=== PATIENT | female | born 2005 | race Caucasian/White ===

== ENCOUNTER → 2023-03-06 | Outpatient (CLI) | payer OTHER ==
[2023-03-06 13:29] LABS: FREE T3 3.2 PG/ML (3.0-4.7); FREE T4 1.1 NG/DL (0.83-1.43); THYROID STIMULATING HORMONE 0.855 uIU/ML (0.48-4.17)
[2023-03-07 13:08] LABS: SSA SJOGRENS A <0.2 AI (0.0-0.9); SSB SJOGRENS B 0.2 AI (0.0-0.9)
== END ==
LOC: M LAB 12:35
PROVIDERS: ATTEND Ophthalmology
DX: H16.229 Keratoconjunctivitis sicca, not specified as Sjogren's, unspecified eye (principal)

== ENCOUNTER → 2023-03-23 | Outpatient (REF) | LOC: M EMP 09:57 | PROVIDERS: ATTEND Family Medicine | DX: Z11.52 Encounter for screening for COVID-19 (principal) ==

== ENCOUNTER → 2023-08-30 | Outpatient (CLI) | payer MEDICAID, OTHER ==
[2023-08-30 15:16] LABS: BASO % 0.4 % (0.0-1.0); EOS # 0.1 10^3/uL (0.0-0.5); EOS % 1.1 % (0.0-3.0); HEMOGLOBIN 12.9 g/dl (12.0-15.5); LYMPH # 1.7 10^3/uL (1.5-5.0); LYMPH % 22.6 % (24.0-44.0); MEAN CORPUSCULAR HEMOGLOBIN 30.4 pg (27.0-33.0); MEAN CORPUSCULAR HGB CONC 33.1 g/dl (32.0-36.5); MEAN CORPUSCULAR VOLUME 91.8 fl (80.0-96.0); MONO # 0.5 10^3/uL (0.0-0.8); MONO % 7.2 % (2.0-8.0); NEUTROPHILS # 5.1 10^3/uL (1.5-8.5); NEUTROPHILS % 68.6 % (36.0-66.0); PLATELET COUNT, AUTOMATED 195 10^3/uL (150-450); RED BLOOD COUNT 4.25 10^6/uL (4.00-5.40); WHITE BLOOD COUNT 7.5 10^3/uL (4.0-10.0)
[2023-08-30 15:45] LABS: ALBUMIN 3.9 G/DL (3.2-5.2); ALKALINE PHOSPHATASE 78 U/L (46-116); ALT/SGPT 12 U/L (7.0-40); AST/SGOT < 8 U/L (<34); BILIRUBIN,TOTAL 0.8 MG/DL (0.3-1.2); BLOOD UREA NITROGEN 15 MG/DL (9-23); CALCIUM LEVEL 8.5 MG/DL (8.5-10.1); CARBON DIOXIDE LEVEL 28 MMOL/L (20-31); CHLORIDE LEVEL 108 MMOL/L (98-107); CREATININE FOR GFR 0.64 MG/DL (0.55-1.30); GLUCOSE, FASTING 90 MG/DL (60-100); IRON (FE) 95 UG/DL (50-170); PERCENT SATURATION 28.3 % (13.2-45.0); POTASSIUM SERUM 4.7 MMOL/L (3.5-5.1); SODIUM LEVEL 141 MMOL/L (136-145); TOTAL IRON BINDING CAPACITY 336 UG/DL (250-425); TOTAL PROTEIN 6.5 G/DL (5.7-8.2)
[2023-08-30 15:47] LABS: THYROID STIMULATING HORMONE 0.906 uIU/ML (0.48-4.17); TOTAL 25(OH) VITAMIN D 21.9 NG/ML (20.0-100.0)
[2023-08-30 15:48] LABS: MONO SCRN NEGATIVE (NEGATIVE)
== END ==
LOC: M LAB 14:48
PROVIDERS: ATTEND Physician Assistant
DX: R53.83 Other fatigue (principal)